=== PATIENT | male | born 1940 | race Caucasian/White ===

== ENCOUNTER 2018-09-11 16:10 | Emergency (ER) | payer SELFPAY ==
[~2018-09-11] VITALS: Ht 180.3 cm; Wt 72.6 kg
[~2018-09-11 16:10] MED LIST: AMLO10; ASPI81CH; DOCU100; FOLI1; HYDR10; INCARCERATION; MIRT15ST; TAMS.4ER; ZESTRIL40 MG; [UNRECOGNIZED DRUG - REMARK]
[2018-09-11 16:38] LABS: BASOPHILS ABSOLUTE AUTO 0.06 K/mm3 (0.00-0.23); BASOPHILS PERCENT AUTO 0 % (0-2); Hematocrit 27.6 % (37.0-53.0); Hemoglobin 9.1 g/dL (13.5-17.5); LYMPHOCYTES ABSOLUTE AUTO 2.59 K/mm3 (0.84-5.20); LYMPHOCYTES PERCENT AUTO 10 % (21-46); MONOCYTES ABSOLUTE AUTO 1.66 K/mm3 (0.16-1.47); MONOCYTES PERCENT AUTO 6 % (4-13); Mean Corpuscular HGB 27.6 pg (26.0-34.0); Mean Corpuscular Volume 84 fL (80-100); Mean Platelet Volume 10.5 fL (9.1-12.4); Platelet Count 214 K/mm3 (150-400); RDW Coefficient Variation 20.2 % (11.7-14.2); RDW Standard Deviation 60.8 fL (35.1-46.3); White Blood Cell Count 25.98 K/mm3 (4.00-11.30)
[2018-09-11 16:43] LABS: EOSINOPHILS ABSOLUTE AUTO 0.02 K/mm3 (0.00-0.68); EOSINOPHILS PERCENT AUTO 0 % (0-6); IMMATURE GRAN ABSOLUTE AUTO 0.18 K/mm3 (0.00-0.10); IMMATURE GRAN PERCENT AUTO 1 % (0-1); NEUTROPHILS ABSOLUTE AUTO 21.47 K/mm3 (1.96-9.15); NEUTROPHILS PERCENT AUTO 83 % (41-73)
[2018-09-11] MEDS ORDERED: METO25ER PO (17:20)
[2018-09-11] MEDS ORDERED: Adalat/Procardi20 MG (17:21)
[2018-09-11] MEDS ORDERED: MIRT15ST MM (17:21)
[2018-09-11] MEDS ORDERED: TYLENOL325 MG (17:22)
[2018-09-11 17:23] LABS: Albumin, Blood 3.5 g/dL (3.4-5.0); Albumin/Globulin Ratio 0.6 (0.8-1.8); Bilirubin, Total 0.4 mg/dL (0.1-1.0); Bun/Creatinine Ratio 11.8 (12.0-20.0); Calcium, Blood 10.1 mg/dL (8.5-10.1); Creatinine, Blood 19.4 mg/dL (0.60-1.20); Globulin, Blood 5.5 g/dL (2.2-4.0); Potassium, Blood 7.5 mmol/L (3.5-5.5)
[2018-09-11] MEDS ORDERED: DOCU100 PO (17:23)
[2018-09-11] MEDS ORDERED: Lorazepam0.5 MG PO (17:25)
[2018-09-11] MEDS ORDERED: MORP20ER (17:26)
--- NOTE | 2018-09-11 18:14 | NUR ---
called to ER pt opens eys, but labored respirations audible coarse sounds. non verbal no eye contact. pale. [facility] contact on list nursing contacting number stated as case managers. [facility]. [facility] with pt comfort only. will update care mangers. will reevaluate in AM if pt can tranfer back to [facility]. It would be best if he can since it appears he has no family.
== END 2018-09-11 18:40 | disposition home or self-care (01) ==
LOC: ER 16:10
PROVIDERS: Emergency Medicine
DX: R06.03 Acute respiratory distress (principal); N17.9 Acute kidney failure, unspecified; E11.22 Type 2 diabetes mellitus with diabetic chronic kidney disease; N18.9 Chronic kidney disease, unspecified; Z79.82 Long term (current) use of aspirin; Z79.899 Other long term (current) drug therapy
CPT/HCPCS: 71046; 80053; 85025; 94640; 99285-25